=== PATIENT | male | born 1955 | race Caucasian/White ===

== ENCOUNTER 2024-12-25 13:08 | Emergency (ER) | payer MEDICARE ==
[2024-12-25 13:29] LABS: BASOPHILS PERCENT AUTO 0.2 % (0.1-1.3); EOSINOPHILS ABSOLUTE AUTO 0.05 K/uL (0.00-0.40); EOSINOPHILS PERCENT AUTO 0.9 % (0.0-5.4); HEMATOCRIT 37.2 % (38.4-49.7); HEMOGLOBIN 13.1 g/dL (12.9-16.9); IMMATURE GRAN PERCENT AUTO 0.2 % (0.0-0.7); LYMPHOCYTES ABSOLUTE AUTO 0.75 K/uL (0.8-3.3); LYMPHOCYTES PERCENT AUTO 12.8 % (11.4-47.7); MEAN CORPUSCULAR HEMOGLOBIN 30.5 pg (31.6-35.5); MEAN CORPUSCULAR HGB CONC 35.2 g/dL (31.6-35.5); MEAN CORPUSCULAR VOLUME 86.7 fL (81.4-99.0); MONOCYTES ABSOLUTE AUTO 0.53 K/uL (0.20-0.90); MONOCYTES PERCENT AUTO 9.1 % (3.3-12.6); NEUTROPHILS ABSOLUTE AUTO 4.49 K/uL (1.0-7.6); NEUTROPHILS PERCENT AUTO 76.8 % (40.0-78.1); PLATELET COUNT,PLT 159 K/uL (130-375); RED BLOOD CELL COUNT 4.29 M/uL (4.14-5.76); WHITE BLOOD CELL COUNT,WBC 5.8 K/uL (3.2-11.0)
[2024-12-25 13:30] LABS: BASOPHILS ABSOLUTE AUTO 0.01 K/uL (0.00-0.10); IMMATURE GRAN ABSOLUTE AUTO 0.01 K/uL (0.00-0.23)
[2024-12-25] MEDS: fentaNYL 100 MCG/2 ML SDV IVPUSH ONE (13:36)
[2024-12-25] MEDS: Ondansetron 4 MG/2 ML SDV IVPUSH ONE (13:36)
[2024-12-25 13:40] LABS: ANION GAP 7.8 mmol/L (5.0-14.0); BLOOD UREA NITROGEN,BUN 22 mg/dL (7-18); CALCIUM 8.5 mg/dL (8.5-10.1); CARBON DIOXIDE,CO2 28 mmol/L (21-32); CHLORIDE,CL 104 mmol/L (100-108); CREATININE 1.3 mg/dL (0.8-1.3); ESTIMATED GFR 60 mL/min (>60); GLUCOSE RANDOM 101 mg/dL (74-106); POTASSIUM,K 4.4 mmol/L (3.6-5.2); SODIUM,NA 140 mmol/L (140-148)
[2024-12-25] MEDS: Sodium Chloride 0.9% 100 ML IV SCH (14:50)
[2024-12-25] MEDS: Sodium Chloride 0.9% 10 ML SDV FLUSH ONE (14:50)
[2024-12-25] MEDS: Iopamidol 612 MG/ML 100 ML Bottle IV PRN (14:51)
[2024-12-25] MEDS: Lidocaine 1% with EPINEPHrine 1:100,000 50 ML MDV SUBCUT STA (14:59)
[2024-12-25] MEDS: Bacitracin Oint 1 GM U/D Packet TOP ONE (15:00)
[2024-12-25] MEDS ORDERED: Sennosides/Docusate Sodium 50-8.6 MG Tab PO PRN (20:20)
[2024-12-25] MEDS ORDERED: Magnesium Hydroxide 400 MG/5 ML Susp 30 ML Cup PO PRN (20:20)
[2024-12-25] MEDS ORDERED: Melatonin 3 MG Tab PO PRN (20:20)
[2024-12-25] MEDS ORDERED: Ondansetron 4 MG/2 ML SDV IV PRN (20:20)
[2024-12-25] MEDS ORDERED: Acetaminophen 325 MG Tab PO PRN (20:20)
[2024-12-25] MEDS ORDERED: Ondansetron 4 MG Tab.DIS PO PRN (20:20)
[2024-12-25] MEDS ORDERED: Acetaminophen/HYDROcodone 325-5 MG Tab PO PRN (20:36)
[2024-12-25] MEDS ORDERED: tiZANidine 2 MG Tab PO PRN (20:36)
== END 2024-12-25 22:41 ==
LOC: JP.ED 13:08 → UNDOADMOB 18:27 → JP.MS 18:27 → JP.ED 22:08
DX: S23.29XA Dislocation of other parts of thorax, initial encounter (principal); Z90.49 Acquired absence of other specified parts of digestive tract; V86.52XA Driver of snowmobile injured in nontraffic accident, initial encounter
CPT/HCPCS: 36415; 70450; 71260; 72125; 73562; 76377; 80048; 84484; 85025; 87428; 93005; 93010; 96374; 96375; 99284; 99285; J2405; J3010; Q9967